=== PATIENT | female | born 1985 | race American Indian/Alaskan Native ===

== ENCOUNTER 2019-01-07 16:59 | Emergency (ER) | payer OTHER ==
[2019-01-07 17:07] VITALS: BP 150/73
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
--- NOTE | 2019-01-07 18:23 | XRay Report ---
LUMBAR SPINE 2 VIEWS INDICATION / CLINICAL INFORMATION: back pain.. COMPARISON: None available. FINDINGS: VERTEBRAE: No fracture. No significant malalignment. DISC SPACES:No significant abnormality. FACET JOINTS:No significant abnormality. ADDITIONAL FINDINGS: None. IMPRESSION: 1. No significant abnormality. Signer Name: Jose Nguyen MD Signed: 01/07/2019 6:18 PM Workstation Name: [id number]
[2019-01-07] MEDS ORDERED: IBUPROFEN PO ONE (19:21)
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
== END 2019-01-07 19:52 | disposition home or self-care (01) ==
LOC: ED 16:59
DX: S39.012A Strain of muscle, fascia and tendon of lower back, initial encounter (principal); F17.200 Nicotine dependence, unspecified, uncomplicated; Z90.89 Acquired absence of other organs; V49.49XA Driver injured in collision with other motor vehicles in traffic accident, initial encounter; Y93.89 Activity, other specified; Y92.410 Unspecified street and highway as the place of occurrence of the external cause; Y99.8 Other external cause status
CPT/HCPCS: 72100; 99283

== ENCOUNTER 2019-01-10 09:52 | Emergency (ER) | payer OTHER ==
[2019-01-10 10:00] VITALS: BP 138/81
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
== END 2019-01-10 10:35 | disposition home or self-care (01) ==
LOC: ED 09:52
DX: B34.9 Viral infection, unspecified (principal); F17.200 Nicotine dependence, unspecified, uncomplicated; Z90.89 Acquired absence of other organs
CPT/HCPCS: 99282

== ENCOUNTER 2020-03-16 14:11 | Emergency (ER) | payer OTHER ==
[2020-03-16 14:26] VITALS: BP 152/89
[2020-03-16 16:06] LABS: Basophils # (Auto) 0.1 K/mm3 (0.0-0.1); Basophils % (Auto) 0.8 % (0.0-1.8); Eosinophils # (Auto) 0.2 K/mm3 (0.0-0.4); Eosinophils % (Auto) 1.3 % (0.0-4.3); Hematocrit 35.7 % (30.3-42.9); Hemoglobin 11.6 gm/dl (10.1-14.3); Lymphocytes # (Auto) 3.3 K/mm3 (1.2-5.4); Lymphocytes % (Auto) 26.6 % (13.4-35.0); Mean Corpuscular HGB Conc 33 % (30-34); Mean Corpuscular Volume 76 fl (79-97); Monocytes # (Auto) 0.6 K/mm3 (0.0-0.8); Platelet Count 336 K/mm3 (140-440); Red Blood Count 4.67 M/mm3 (3.65-5.03); Red Cell Distribution Width 15.8 % (13.2-15.2)
[2020-03-16 16:16] LABS: INR 0.9 (0.87-1.13)
[2020-03-16 16:17] LABS: Partial Thromboplastin Time 32.8 Sec. (24.2-36.6)
[2020-03-16 16:19] LABS: BUN/Creatinine Ratio 25; Blood Urea Nitrogen 20 mg/dL (7-17); Calcium 9.8 mg/dL (8.4-10.2); Hemolysis Index 7
[2020-03-16 16:23] LABS: Alanine Aminotransferase 11 units/L (7-56); Albumin 4.1 g/dL (3.9-5)
[2020-03-16 16:27] LABS: Bilirubin,Direct < 0.2 mg/dL (0-0.2)
--- NOTE | 2020-03-16 18:27 | Emergency Department Report ---
ED GI Bleed [facility] - General Chief complaint: GI Bleed Stated complaint: BLEEDING Time Seen by Provider: 03/16/20 18:05 Source: patient Mode of arrival: Ambulatory Limitations: No Limitations - History of Present Illness Initial comments: 34-year-old -[place] female presents to the emergency room complaining of bleeding from the rectum. Patient states that this is her fifth time having blood on the toilet tissue and in the toilet. Patient denies any abdominal pain no rectal pain. Patient does report a history of hemorrhoids and hypertension. Patient states at this moment her hemorrhoids are not flaring up. Patient does admit that she does not eat a high-fiber diet and does not drink much water. Patient denies any abdominal pain chest pain shortness of breathing dysuria urinary frequency urinary urgency. MD complaint: blood streaked emesis, blood on toilet paper - Related Data Previous Rx's Medication Instructions Recorded Last Taken Type Cyclobenzaprine [Flexeril] 10 mg PO QHS PRN #10 tablet 01/07/19 Unknown Rx Ibuprofen [Motrin] 600 mg PO Q8H PRN #20 tablet 01/07/19 Unknown Rx Allergies Allergy/AdvReac Type Severity Reaction Status Date / Time No Known Allergies Allergy Verified 01/10/19 09:53 ED Review of Systems ROS: Stated complaint: BLEEDING Other details as noted in HPI ED Past Medical Hx - Past Medical History Previous Medical History?: Yes Hx Hypertension: Yes - Surgical History Past Surgical History?: Yes Additional Surgical History: hernia repair (1999), tonsilectomy (2002) - Social History Smoking Status: Current Every Day Smoker Substance Use Type: Marijuana - Medications Home Medications: Home Medications Medication Instructions Recorded Confirmed Last Taken Type Cyclobenzaprine [Flexeril] 10 mg PO QHS PRN #10 tablet 01/07/19 Unknown Rx Ibuprofen [Motrin] 600 mg PO Q8H PRN #20 tablet 01/07/19 Unknown Rx ED Physical Exam - General Limitations: No Limitations General appearance: alert, in no apparent distress - Head Head exam: Present: atraumatic, normocephalic - ENT ENT exam: Present: mucous membranes moist - Neck Neck exam: Present: normal inspection - Respiratory Respiratory exam: Present: normal lung sounds bilaterally - Cardiovascular Cardiovascular Exam: Present: regular rate - GI/Abdominal GI/Abdominal exam: Present: soft, normal bowel sounds - Rectal Rectal exam: Present: normal rectal tone, heme (-) stool, hemorrhoids - Extremities Exam Extremities exam: Present: normal inspection - Back Exam Back exam: Present: normal inspection - Neurological Exam Neurological exam: Present: alert, oriented X3 - Psychiatric Psychiatric exam: Present: normal affect, normal mood - Skin Skin exam: Present: warm, dry, intact, normal color. Absent: rash ED Course Vital Signs 03/16/20 14:23 Temperature 97.9 F Pulse Rate 87 Respiratory 16 Rate Blood Pressure 152/89 O2 Sat by Pulse 100 Oximetry ED Medical Decision Making - Lab Data Result diagrams: 03/16/20 15:49 03/16/20 15:49 Laboratory Tests 03/16/20 03/16/20 03/16/20 15:49 15:49 15:49 WBC 12.5 H RBC 4.67 Hgb 11.6 Hct 35.7 MCV 76 L MCH 25 L MCHC 33 RDW 15.8 H Plt Count 336 Lymph % (Auto) 26.6 Hill % (Auto) 5.0 Eos % (Auto) 1.3 Baso % (Auto) 0.8 Lymph # 3.3 Hill # 0.6 Eos # 0.2 Baso # 0.1 Seg Neutrophils % 66.3 Seg Neutrophils # 8.3 H PT 12.3 INR 0.90 APTT 32.8 Sodium 137 Potassium 3.6 Chloride 98.1 Carbon Dioxide 27 Anion Gap 16 BUN 20 H Creatinine 0.8 Estimated GFR > 60 BUN/Creatinine Ratio 25 Glucose 107 H Calcium 9.8 Total Bilirubin Direct Bilirubin AST ALT Alkaline Phosphatase Total Protein Albumin Albumin/Globulin Ratio 03/16/20 15:49 WBC RBC Hgb Hct MCV MCH MCHC RDW Plt Count Lymph % (Auto) Hill % (Auto) Eos % (Auto) Baso % (Auto) Lymph # Hill # Eos # Baso # Seg Neutrophils % Seg Neutrophils # PT INR APTT Sodium Potassium Chloride Carbon Dioxide Anion Gap BUN Creatinine Estimated GFR BUN/Creatinine Ratio Glucose Calcium Total Bilirubin < 0.20 Direct Bilirubin < 0.2 AST 14 ALT 11 Alkaline Phosphatase 84 Total Protein 7.1 Albumin 4.1 Albumin/Globulin Ratio 1.4 - Medical Decision Making 34-year-old -[place] female presents to the emergency room complaining of bleeding from the rectum. Patient states that this is her fifth time having blood on the toilet tissue and in the toilet. Patient denies any abdominal pain no rectal pain. Patient does report a history of hemorrhoids and hypertension. Patient states at this moment her hemorrhoids are not flaring up. Patient does admit that she does not eat a high-fiber diet and does not drink much water. Patient denies any abdominal pain chest pain shortness of breathing dysuria urinary frequency urinary urgency. Critical care attestation.: If time is entered above; I have spent that time in minutes in the direct care of this critically ill patient, excluding procedure time. ED Disposition Clinical Impression: BRBPR (bright red blood per rectum) Hemorrhoids Qualifiers: Hemorrhoid type: residual hemorrhoidal skin tags Qualified Code(s): K64.4 - Residual hemorrhoidal skin tags; I84.6 - Residual hemorrhoidal skin tags Disposition: - TO HOME OR SELFCARE Is pt being admited?: No Does the pt Need Aspirin: No Condition: Stable Instructions: Hemorrhoids (ED), Rectal Bleeding (ED) Additional Instructions: Urinalysis is negative labs are stable. Stool occult blood was negative. I recommend following up with a colorectal specialist. Referrals: [facility] [Provider Group] - 3-5 Days Forms: Accompanied Note, Work/School Release Form(ED)
[2020-03-16 18:44] LABS: Bacteria,Urine 1+ /HPF (Negative); Bilirubin,Urine NEG (Negative); Blood,Urine NEG (Negative); Color,Urine Yellow (Yellow); Mucus,Urine FEW /HPF; Protein,Urine <15 mg/dL mg/dL (Negative); Urobilinogen,Urine < 2.0 mg/dL (<2.0); WBC,Urine < 1.0 /HPF (0.0-6.0)
== END 2020-03-16 19:12 | disposition home or self-care (01) ==
LOC: ED 14:11
DX: K64.9 Unspecified hemorrhoids (principal); K62.5 Hemorrhage of anus and rectum; I10 Essential (primary) hypertension; F17.200 Nicotine dependence, unspecified, uncomplicated; F12.10 Cannabis abuse, uncomplicated; Z90.89 Acquired absence of other organs; Z98.890 Other specified postprocedural states; Z79.1 Long term (current) use of non-steroidal anti-inflammatories (NSAID); Z79.899 Other long term (current) drug therapy
CPT/HCPCS: 36415; 80048; 80076; 81001; 82271; 85025; 85610; 85730

== ENCOUNTER 2021-01-09 15:52 | Emergency (ER) | payer OTHER | END 2021-01-09 17:49 | disposition left against medical advice (07) | LOC: ED 15:52 | DX: R10.9 Unspecified abdominal pain (principal); Z53.21 Procedure and treatment not carried out due to patient leaving prior to being seen by health care provider ==

== ENCOUNTER 2021-07-13 02:14 | Emergency (ER) | payer OTHER ==
[2021-07-13] MEDS ORDERED: ACETAMINOPHEN 500 MG TAB PO ONE (07:23)
--- NOTE | 2021-07-13 07:24 | Emergency Department Report ---
Minor Respiratory - HPI Chief Complaint: Headache Stated Complaint: HEADACHE BODYACHES VOMITNG Time Seen by Provider: 07/13/21 07:23 Duration: 4 Days Pain Location: Other Severity: mild Minor Respiratory: Yes Able to Tolerate Fluids, No Rhinorrhea, No Sore Throat, No Ear Pain, No Cough, No Sick Contacts, No Hemoptysis, No Chest Pain, No Shortness of Breath, No Fever Other History: 35 YO COMES TO ER CO CHILLS, VOMITING AND BODY ACHES. SUBJECTIVE FEVER FOR 4 DAYS. NON COVID IMMUNIZED. DOES NOT BELIEVE IN FLU SHOTS. DENIES MED HX OR CURRENT RX. AMBULATORY AND NON ILL APPEARING ON ARRIVAL TO ER ED Review of Systems ROS: Stated complaint: HEADACHE BODYACHES VOMITNG Other details as noted in HPI Comment: All other systems reviewed and negative ED Past Medical Hx - Past Medical History Previous Medical History?: Yes Hx Hypertension: Yes - Surgical History Past Surgical History?: Yes Hx Appendectomy: Yes Additional Surgical History: hernia repair (1999), tonsilectomy (2002) - Family History Family history: no significant - Social History Smoking Status: Current Every Day Smoker Substance Use Type: Marijuana - Medications Home Medications: Home Medications Medication Instructions Recorded Confirmed Last Taken Type Cyclobenzaprine [Flexeril] 10 mg PO QHS PRN #10 tablet 01/07/19 Unknown Rx Ibuprofen [Motrin] 600 mg PO Q8H PRN #20 tablet 01/07/19 Unknown Rx Minor Respiratory Exam - Exam General: Vital signs noted. No distress. Alert and acting appropriately. HEENT: Yes Moist Mucous Membranes, No Pharyngeal Erythema, No Pharyngeal Exudates, No Rhinorrhea, No Conjuctival Injection, No Frontal Tenderness, No Maxillary Tenderness Ear: Neither TM Bulge, Neither TM Erythema, Neither EAC Pain, Neither EAC Discharge Neck: Yes Supple, No Adenopathy Lungs: Yes Good Air Exchange, No Wheezes, No Ronchi, No Stridor, No Cough, No Labored Respirations, No Retractions, No Use of Accessory Muscles, No Other Abnormal Lung Sounds Heart: Yes Regular, No Murmur Abdomen: Yes Normal Bowel Sounds, No Tenderness, No Peritoneal Signs Skin: No Rash, No Edema Neurologic: Alert and oriented, no deficits. Musculoskeletal: Unremarkable. ED Course Vital Signs 07/13/21 02:17 Temperature 98.2 F Pulse Rate 78 Respiratory 18 Rate Blood Pressure 140/82 O2 Sat by Pulse 99 Oximetry ED Medical Decision Making - Radiology Data Radiology results: report reviewed, image reviewed - Medical Decision Making Vital Signs 07/13/21 02:17 Temperature 98.2 F Pulse Rate 78 Respiratory 18 Rate Blood Pressure 140/82 O2 Sat by Pulse 99 Oximetry XRAY NAP RAPID FLU NEG PT EDUCATED ON COVID XRAY/RAPIDS/PCR AMBULATORY NON ILL NON TOXIC TAKING PO- SHE HAS HAD NO VOMITING IN ER VS NORMAL DC HOME WITH DC PLAN OF CARE INCLUDING CONSERVATIVE MANAGEMENT AND OTC SYMPTOM RELIEF. SHE VERBALIZES UNDERSTANDING OF PLAN OF CARE. - Differential Diagnosis RO COVID/URI/FLU Critical care attestation.: If time is entered above; I have spent that time in minutes in the direct care of this critically ill patient, excluding procedure time. ED Disposition Clinical Impression: Person under investigation for COVID-19 Disposition: 01 HOME / SELF CARE / HOMELESS Is pt being admited?: No Does the pt Need Aspirin: No Condition: Stable Instructions: COVID-19 Additional Instructions: stay well hydrated over the counter motrin or tylenol for pain over the counter symptom relief xray and vital signs normal today follow up with pcp or urgent care if symptoms dont improve in 48 hours- referral below Referrals: KIRIT SHEPHERD MD [Staff Physician] - 3-5 Days Forms: Work/School Release Form(ED) Time of Disposition: 08:18
--- NOTE | 2021-07-13 08:16 | XRay Report ---
CHEST 2 VIEWS INDICATION: sob; x4days. COMPARISON: None FINDINGS: Support devices: None. Heart: Within normal limits. Lungs/pleura: No acute air space or interstitial disease. No pneumothorax. Additional findings: None. IMPRESSION: No acute findings. Signer Name: Vasyl Garcia Jr, MD Signed: 07/13/2021 8:11 AM Workstation Name: [id number]
[2021-07-13 10:54] VITALS: BP 123/79
== END 2021-07-13 10:54 | disposition home or self-care (01) ==
LOC: ED 02:14
DX: Z01.84 Encounter for antibody response examination (principal); I10 Essential (primary) hypertension; Z90.49 Acquired absence of other specified parts of digestive tract; Z98.890 Other specified postprocedural states; F17.200 Nicotine dependence, unspecified, uncomplicated; F12.90 Cannabis use, unspecified, uncomplicated
CPT/HCPCS: 71046; 87400; 99283

== ENCOUNTER 2022-03-21 11:31 | Emergency (ER) | payer OTHER ==
[2022-03-21 11:35] VITALS: BP 154/79
[2022-03-21] MEDS ORDERED: LIDOCAINE VISCOUS 2% 15 ML ORAL LIQD PO ONE (16:38)
[2022-03-21] MEDS ORDERED: oxyCODONE /ACETAMINOPHEN 5-325MG TAB PO PRN (16:39)
[2022-03-21] MEDS ORDERED: IBUPROFEN 800 MG TAB PO ONE (16:39)
--- NOTE | 2022-03-21 16:44 | Emergency Department Report ---
ED ENT HPI - General Chief complaint: Medical Clearance Stated complaint: ABSCESS Time Seen by Provider: 03/21/22 16:08 Source: patient Mode of arrival: Ambulatory Limitations: No Limitations - History of Present Illness Initial comments: 36-year-old female presenting with abscess. Patient reports the swelling in her face and her jaw started today. States she has been abscess in the left lower tooth which has been going on x2 days, was seen at the urgent care and placed on amoxicillin which she has been taking for the last 2 days.. Reports she us [facility]son has frequent dental abscesses due to decay teeth, "afraid to have the teeth extracted". R Has symptoms associated with difficulty chewing, chills, subjective fever, headache, ear pain. She denies nausea or vomiting, no weakness fatigue, no vision changes, she denies being . Last menstrual period is 02/26/2022. MD complaint: tooth pain Location: tooth # () Severity: severe Severity scale (0 -10): 10 Quality: constant Worsens with: none - Related Data Previous Rx's Medication Instructions Recorded Last Taken Type Cyclobenzaprine [Flexeril] 10 mg PO QHS PRN #10 tablet 01/07/19 Unknown Rx Ibuprofen [Motrin] 600 mg PO Q8H PRN #20 tablet 01/07/19 Unknown Rx Benzocaine/Menthol/Zinc Chlor 5.1 gm MM Q2H PRN #1 03/21/22 Unknown Rx [Orajel 3X Mouth Sores Gel] Clindamycin [Clindamycin CAP] 300 mg PO Q8H 7 Days cap 03/21/22 Unknown Rx Naproxen [Naprosyn] 500 mg PO BID PRN #20 tablet 03/21/22 Unknown Rx Allergies Allergy/AdvReac Type Severity Reaction Status Date / Time No Known Allergies Allergy Verified 03/21/22 11:36 ED Dental HPI - General Chief complaint: Medical Clearance Stated complaint: ABSCESS Time Seen by Provider: 03/21/22 16:08 Source: patient Mode of arrival: Ambulatory Limitations: No Limitations - Related Data Previous Rx's Medication Instructions Recorded Last Taken Type Cyclobenzaprine [Flexeril] 10 mg PO QHS PRN #10 tablet 01/07/19 Unknown Rx Ibuprofen [Motrin] 600 mg PO Q8H PRN #20 tablet 01/07/19 Unknown Rx Benzocaine/Menthol/Zinc Chlor 5.1 gm MM Q2H PRN #1 03/21/22 Unknown Rx [Orajel 3X Mouth Sores Gel] Clindamycin [Clindamycin CAP] 300 mg PO Q8H 7 Days cap 03/21/22 Unknown Rx Naproxen [Naprosyn] 500 mg PO BID PRN #20 tablet 03/21/22 Unknown Rx Allergies Allergy/AdvReac Type Severity Reaction Status Date / Time No Known Allergies Allergy Verified 03/21/22 11:36 ED Review of Systems ROS: Stated complaint: ABSCESS Other details as noted in HPI Constitutional: chills, fever. denies: malaise, weakness ENT: ear pain, dental pain. denies: throat pain, hearing loss, congestion Respiratory: denies: cough, orthopnea Cardiovascular: denies: chest pain Endocrine: denies: excessive sweating Gastrointestinal: denies: abdominal pain, nausea, vomiting Genitourinary: denies: urgency, frequency Musculoskeletal: denies: back pain, joint swelling Skin: denies: rash, lesions Neurological: headache. denies: weakness, numbness, paresthesias, confusion, abnormal gait Psychiatric: denies: anxiety, depression Hematological/Lymphatic: denies: easy bleeding ED Past Medical Hx - Past Medical History Hx Hypertension: Yes - Surgical History Hx Appendectomy: Yes Additional Surgical History: hernia repair (1999), tonsilectomy (2002) - Social History Smoking Status: Current Every Day Smoker Substance Use Type: Marijuana - Medications Home Medications: Home Medications Medication Instructions Recorded Confirmed Last Taken Type Cyclobenzaprine [Flexeril] 10 mg PO QHS PRN #10 tablet 01/07/19 Unknown Rx Ibuprofen [Motrin] 600 mg PO Q8H PRN #20 tablet 01/07/19 Unknown Rx Benzocaine/Menthol/Zinc Chlor 5.1 gm MM Q2H PRN #1 03/21/22 Unknown Rx [Orajel 3X Mouth Sores Gel] Clindamycin [Clindamycin CAP] 300 mg PO Q8H 7 Days cap 03/21/22 Unknown Rx Naproxen [Naprosyn] 500 mg PO BID PRN #20 tablet 03/21/22 Unknown Rx ED Physical Exam - General Limitations: No Limitations General appearance: alert, in no apparent distress - Head Head exam: Present: atraumatic - Eye Eye exam: Present: normal appearance - ENT ENT exam: Present: normal exam, normal orophraynx, mucous membranes moist - Expanded ENT Exam Expanded Ear exam: Present: normal external inspection Mouth exam: Absent: drooling, trismus, muffled voice Teeth exam: Present: dental caries, dental tenderness #, gingival enlargement, other (Multiple decaying teeth, patient has some swelling to the left lower jaw, no fluctuance, does not extend all occluded airway, swallowing without difficulty.) 1 - Other - Neck Neck exam: Present: normal inspection. Absent: lymphadenopathy - Respiratory Respiratory exam: Present: normal lung sounds bilaterally. Absent: respiratory distress - Cardiovascular Cardiovascular Exam: Present: regular rate - GI/Abdominal GI/Abdominal exam: Present: soft. Absent: distended - Extremities Exam Extremities exam: Present: normal inspection, full ROM - Back Exam Back exam: Present: normal inspection, full ROM - Neurological Exam Neurological exam: Present: alert, oriented X3, normal gait - Psychiatric Psychiatric exam: Present: normal affect, normal mood - Skin Skin exam: Present: warm, dry, intact, normal color ED Course Vital Signs 03/21/22 11:34 Temperature 98.6 F Pulse Rate 85 Respiratory 18 Rate Blood Pressure 154/79 [Right] O2 Sat by Pulse 97 Oximetry ED Medical Decision Making - Medical Decision Making 36-year-old female presenting with dental abscess no drooling no fever, no trismus, she is tolerating oral secretions. Already has a dentist which I have reinforced she does need a follow-up. Continue taking amoxicillin, added some clindamycin to her regimen, Rx for tramadol, Orajel and naproxen. Patient remained stable nontoxic-appearing, afebrile, ambulating steadily without assistance. Gone over ED findings with patient as well as plan for follow-up. Also discussed return precautions with patient, all questions and concerns addressed. Patient is stable to be discharged follow-up outpatient. Audio voice dictation device used, hence the chart might contain some dictation errors, mispronunciations, wrong spelling and wrong verbiage. Critical care attestation.: If time is entered above; I have spent that time in minutes in the direct care of this critically ill patient, excluding procedure time. ED Disposition Clinical Impression: Dental abscess, Pain, dental Disposition: 01 HOME / SELF CARE / HOMELESS Is pt being admited?: No Does the pt Need Aspirin: No Condition: Stable Instructions: Dental Abscess Prescriptions: Clindamycin [Clindamycin CAP] 300 mg PO Q8H 7 Days cap Naproxen [Naprosyn] 500 mg PO BID PRN #20 tablet PRN Reason: Pain , Severe (7-10) Benzocaine/Menthol/Zinc Chlor [Orajel 3X Mouth Sores Gel] 5.1 gm MM Q2H PRN #1 PRN Reason: Pain , Severe (7-10) Forms: Work/School Release Form(ED)
[2022-03-21] MEDS ORDERED: dexAMETHasone 20 MG/5 ML VIAL IM ONE (17:04)
[2022-03-21] MEDS ORDERED: CLINDAMYCIN 150 MG/ML VIAL 6 ML IM ONE (17:04)
== END 2022-03-21 18:10 | disposition home or self-care (01) ==
LOC: ED 11:31
DX: K04.7 Periapical abscess without sinus (principal); K08.89 Other specified disorders of teeth and supporting structures; I10 Essential (primary) hypertension
CPT/HCPCS: 96372; 99282; J1100